=== PATIENT | female | born 1990 | race Caucasian/White ===

== ENCOUNTER 2023-09-27 01:34 | Emergency (ER) | payer BC, MEDICAID, SELFPAY ==
--- NOTE | ~2023-09-27 | XR_ITS ---
EXAMINATION: XR ankle LT min 3V DATE: 09/27/2023 02:14 INDICATION: Left ankle pain and swelling. TECHNIQUE: 3 views of left ankle were obtained. COMPARISON: None. FINDINGS: Bone alignment is normal. No fracture. There is ankylosis of all of the hindfoot and midfoo t joints. There is severe arthritis of the ankle joint including erosions and severe joint space loss . There is ankle soft tissue swelling. IMPRESSION: 1. 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 2. 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 Reviewed, dictated and finalized at location A. IMPRESSION: 1. Severe arthritis of the ankle joint suspicious for inflammatory or septic ar thritis. 2. 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
--- NOTE | ~2023-09-27 | XR_ITS ---
EXAMINATION: XR chest 1V portable DATE: 09/27/2023 02:14 INDICATION: Tachycardia. TECHNIQUE: A single frontal view of the chest was obtained. COMPARISON: None. FINDINGS: There is no pneumonia, pleural effusion, or pneumothorax. The heart size is normal. Surgica l clips in the right upper quadrant are likely from cholecystectomy. IMPRESSION: 1. No acute cardiopulmonary disease. Reviewed, dictated and finalized at location A.
--- NOTE | 2023-09-27 01:38 | ECG_ITS ---
Test Date: 2023-09-27 01:56:18 Measurements Intervals [place] Rate: 126 P: 27 MO: 139 QRS: 42 QRSD: 81 T: 20 QT: 323 QTc: 469 Interpretive Statements SINUS TACHYCARDIA MINIMAL ST DEPRESSION [0.025+ mV ST DEPRESSION] ABNORMAL ECG WARNING: DATA QUALITY MAY AFFECT INTERPRETATION No previous ECG available for comparison Electronically Signed On 09-27-2023 15:14:18 CDT by Jozef Richardson M.D.
[2023-09-27 01:39] VITALS: BP 154/100; PULSE 138; RESP 17; TEMP 37.1; O2SAT 100
--- NOTE | 2023-09-27 01:46 | ED.GENADULT ---
HPI - General Adult General Chief complaint: Extremity Problem,Nontraumatic <Angela Catherine PA-C - Last Filed: 09/27/23 19:23> Stated complaint: Fit for Confinment <Angela Catherine PA-C - Last Filed: 09/27/23 19:23> Time Seen by Provider: 09/27/23 01:36 <Angela Catherine PA-C - Last Filed: 09/27/23 19:23> History of Present Illness HPI narrative: 33-year-old female presents to the emergency department with PD for concerns for intravaginal methamphetamine and fit for confinement. PD at bedside states the patient was pulled over and when she is showed up there was meth beneath her feet. She was brought to the police station and had a scan performed which showed concerns for methamphetamine in her vagina which is why she was brought to the PD. Minus the patient was she is here, she states because her left ankle is septic. States approximately 1 year ago she was hospitalized and underwent surgery for infection in her left ankle joint and multiple rounds of IV antibiotics. She states since then her left ankle swells after she is on her feet for a while and today it is swollen the she has been on her feet. She denies worsening or changing pain, fever, nausea or vomiting. She denies use of alcohol or drugs. <Angela Catherine PA-C - Last Filed: 09/27/23 19:23> Related Data Allergies/adverse reactions: Allergies Allergy/AdvReac Type Severity Reaction Status Date / Time No Known Allergies Allergy Verified 09/28/11 18:15 <Angela Catherine PA-C - Last Filed: 09/27/23 19:23> Review of Systems Review of Systems: CONSTITUTIONAL: Denies fever, chills, or sweats. EYES: Denies visual changes, redness, or discharge. ENT: Denies rhinorrhea, congestion, sore throat, or otalgia. CARDIOVASCULAR: Denies chest pain, palpitations, or edema. RESPIRATORY: Denies cough or dyspnea. GASTROINTESTINAL: Denies abdominal pain, nausea, vomiting, or diarrhea. GENITOURINARY: Denies dysuria or hematuria. SKIN: Denies rash or itching. MUSCULOSKELETAL: See HPI NEUROLOGIC: Denies headache, numbness, or weakness. PSYCHIATRIC: Denies anxiety or depression. <Angela Catherine PA-C - Last Filed: 09/27/23 19:23> Exam Narrative: GENERAL: disheveled, unkept. nontoxic-appearing and In no acute distress. Cooperative HEAD: Normocephalic, atraumatic. EYES: PERRLA and EOMI. ENT: Nares clear, no rhinorrhea or epistaxis. Mucous membranes moist. NECK: Supple. CHEST: Clear to auscultation. No respiratory distress. HEART: Regular rate and rhythm. No murmur heard. Normal peripheral pulses. ABDOMEN: Soft, nontender, nondistended, normal active bowel sounds. : performed with MASON Fried at bedside. External genitalia unremarkable. Vaginal vault with moderate physiological discharge, no foreign bodies. Cervical os closed. No CMT. EXTREMITIES: Left ankle with nonpitting edema to the mediolateral malleoli with well-healed surgical incisions your no warmth or erythema to the joint. Full active and passive range of motion. DP pulse 2 +. Sensation intact. SKIN: Warm, dry, no rash. NEURO: No focal deficits. Alert and oriented x3 <Angela Catherine PA-C - Last Filed: 09/27/23 19:23> Course Course Emergency Course: x-ray showed possibility of septic arthritis versus arthritis versus chronic changes from her previous infection. Orthopedics was called while waiting for Orthopedics the patient decided to leave after law enforcement left the patient signed out against medical advice she understood that there was a risk of septic arthritis sepsis loss of limb loss of function <Lester Villa MD - Last Filed: 09/27/23 04:04> Vital Signs Vital signs: Vital Signs Temperature 98.8 F 09/27/23 01:39 Pulse Rate 138 H 09/27/23 01:39 Respiratory Rate 17 09/27/23 01:39 Blood Pressure 154/100 H 09/27/23 01:39 Pulse Oximetry 100 09/27/23 01:39 Oxygen Delivery Room Air 09/27/23 01:39 Tem
--- NOTE | 2023-09-27 02:01 | PC.NURSE ---
Patient again sleeping. Soft wrist restraints removed.
[2023-09-27] MEDS: SODIUM CHLORIDE 0.9% IV 1,000 ML 999 ML IV CONT ×2 (02:10→03:14)
[2023-09-27 02:12] LABS: Basophils Percent Auto 0.2 % (0.2-1.2); Eosinophils Absolute Auto 0.1 K/mm3 (0-0.3); Eosinophils Percent Auto 0.4 % (0-4.4); Hemoglobin 13.9 g/dL (12.0-15.0); Immature Granulocyte Absolute 0.04 K/mm3 (0.00-0.031); Immature Granulocyte Percent A 0.3 % (0-0.5); Lymphocytes Absolute Auto 1.55 K/mm3 (0.9-3.2); Lymphocytes Percent Auto 12.1 % (18.3-44.2); Mean Corpuscular HGB Conc 34.8 g/dl (32-36); Mean Corpuscular Hemoglobin 29.2 pg (26-34); Mean Platelet Volume 9.4 fl (7.4-10.4); Monocytes Absolute Auto 0.5 K/mm3 (0.1-0.6); Monocytes Percent Auto 4.1 % (2.6-8.5); Neutrophils Absolute Auto 10.7 K/mm3 (1.3-6.7); Neutrophils Percent Auto 82.9 % (45.5-73.1); Platelet Count Result 244 k/mm3 (150-375); Red Blood Count 4.76 M/mm3 (4.2-5.4); Red Cell Distribution Width 12.5 % (11.5-14.5); White Blood Count 12.9 K/mm3 (4.5-10.0)
[2023-09-27 02:26] LABS: Alanine Aminotransferase 41 U/L (6-35); Albumin Level 4.7 g/dL (3.5-5.1); Alkaline Phosphatase 141 U/L (38-126); Anion Gap 12 mmol/L (4-12); Aspartate Amino Transferase 46 U/L (14-36); Bilirubin,Total 0.5 mg/dL (0.2-1.3); Blood Urea Nitrogen 16 mg/dL (7-17); Calcium 8.9 mg/dL (8.4-10.2); Carbon Dioxide 24 mmol/L (22-30); Chloride 104 mmol/L (98-107); Estimated CRCL calculation 95 ml/min; Estimated Glomerular Filt Rate > 60; Glucose 211 mg/dL (65-110); Potassium 3.2 mmol/L (3.4-5.0); Sodium 140 mmol/L (137-145)
[2023-09-27 02:27] LABS: Ethanol < 10 mg/dL (<10)
[2023-09-27 02:28] LABS: CRP < 0.5 mg/dL (<1.0)
[2023-09-27 02:48] LABS: Influenza A QL RT-PCR Negative (Negative); Influenza B QL RT-PCR Negative (Negative); SARS-CoV-2 RNA PCR Negative (Negative)
[2023-09-27 02:54] LABS: Erythrocyte Sedimentation Rate 18 mm/hr (0-20)
[2023-09-27] MEDS: LORazepam INJ (*CRX) 2 MG/ML VIAL 1 MG IV PUSH (03:14)
[2023-09-27 03:16] VITALS: BP 135/76; PULSE 116; RESP 19; O2SAT 98
[2023-09-27 03:31] LABS: Appearance Urine Cloudy (Clear); Bacteria Urine 4+ /hpf; Bilirubin Urine Negative (Negative); Blood Urine 3+ (Negative); Color Urine Dark Yellow (Yellow); Glucose Urine UA Negative (Negative); Ketones Urine Negative (Negative); Leukocyte Esterase Ur Trace LEU/UL (Negative); Need Manual Microscopic Reviewed; Nitrate Urine Positive (Negative); Protein Urine 1+ mg/dL (Negative); Specific Grav Ur 1.023 (1.001-1.035); Squamous Epithelial Cell Urine Occasional /hpf (Few)
[2023-09-27 03:33] LABS: Add Urine Microscopic? YES
[2023-09-27 03:44] LABS: Barbiturate Screen Urine Negative (Negative); Benzodiazepines Screen Urine Negative (Negative)
[2023-09-27 04:02] LABS: Cannabinoid Screen Urine Negative (Negative); Cocaine Screen Urine Negative (Negative); Methadone Screen Urine Negative (Negative); Opiate Screen Urine Positive (Negative); Phencyclidine Screen Urine Negative (Negative)
[2023-09-27 04:20] LABS: Amphetamine Screen Urine Positive (Negative)
== END 2023-09-27 04:02 | disposition left against medical advice (07) ==
PROVIDERS: Emergency Provider Physician Assistant
DX: M25.572 Pain in left ankle and joints of left foot (principal); F15.10 Other stimulant abuse, uncomplicated; Z11.52 Encounter for screening for COVID-19; M19.072 Primary osteoarthritis, left ankle and foot; M24.675 Ankylosis, left foot; R00.0 Tachycardia, unspecified
CPT/HCPCS: 36415; 71045; 73610; 80053; 80307; 81001; 85025; 85652; 86140; 87077; 87086; 87088; 87186; 87636; 93005; 96361; 96374; 99284; J2060; J7030